=== PATIENT | male | born 1965 | race Two or more races ===

== ENCOUNTER 2017-09-07 06:15 | Inpatient (IN) | payer OTHER ==
[~2017-09-07] VITALS: Ht 188 cm; Wt 103.0 kg
[2017-09-07] MEDS ORDERED: RANI300C PO (06:28)
[2017-09-07] MEDS ORDERED: AMLO10TA2 PO (06:28)
[2017-09-07] MEDS ORDERED: HYDR25TA6 PO (06:28)
[2017-09-07] MEDS ORDERED: SODIUM CHLORIDE 0.9% 1,000 ML IV ONE (06:34)
[2017-09-07] MEDS ORDERED: HYDROmorphone 1 MG/ML, 1ML ONE (06:43)
[2017-09-07] MEDS ORDERED: ONDANSETRON 2MG/ML, 2ML ONE (06:43)
[2017-09-07 06:53] LABS: HEMATOCRIT 46.5 % (39.2-51.8)
[2017-09-07] MEDS ORDERED: MORPHINE SULFATE 4 MG/ML, 1ML IVPush PRN (07:00)
[2017-09-07] MEDS ORDERED: SODIUM CHLORIDE FLUSH 10ML SYR IVF ONE (07:00)
[2017-09-07] MEDS ORDERED: HYDROmorphone 1 MG/ML, 1ML IVPush PRN (07:00)
[2017-09-07] MEDS ORDERED: ONDANSETRON 2MG/ML, 2ML IVPush ONE (07:00)
[2017-09-07 07:05] LABS: ASPARTATE AMINO TRANSFERASE 42 U/L (15-37); BLOOD UREA NITROGEN 30 mg/dL (7-18)
[2017-09-07] MEDS ORDERED: OMNIPAQUE 350 MG/ML, 100ML BOTTLE ONE (07:50)
[2017-09-07] MEDS ORDERED: NITROGLYCERIN SINGLE TAB 0.4 MG SL PRN (08:30)
[2017-09-07] MEDS ORDERED: ASPIRIN 81 MG TABLET CHEW ONE (08:38)
[2017-09-07] MEDS: SODIUM CHLORIDE 0.9% 1,000 ML IV SCH (08:51)
[2017-09-07] MEDS ORDERED: ASPIRIN 81 MG TABLET CHEW PO ONE (09:00)
[2017-09-07] MEDS ORDERED: morphine SULFATE 10 MG/ML, 1ML IVPush PRN (09:00)
[2017-09-07] MEDS ORDERED: SODIUM CHLORIDE FLUSH 10ML SYR IVF PRN (09:00)
[2017-09-07] MEDS ORDERED: POTASSIUM CHLORIDE 20 MEQ TAB.ER.PRT PO ONE (09:00)
[2017-09-07] MEDS ORDERED: ACETAMINOPHEN 325 MG TABLET PO PRN (09:00)
[2017-09-07] MEDS ORDERED: hydrALAzine 20 MG/ML, 1ML IVPush PRN (09:00)
[2017-09-07 09:32] LABS: IS PT STATUS REG ER OR PRE ER? YES
[2017-09-07] MEDS: AMLODIPINE 5 MG TABLET PO SCH (09:35)
[2017-09-07] MEDS: HYDROCHLOROTHIAZIDE 25 MG TABLET PO SCH (09:36)
[2017-09-07 10:14] VITALS: BP 156/94
[2017-09-07 14:58] VITALS: BP 130/75
[2017-09-07 15:10] LABS: IS PT STATUS REG ER OR PRE ER? NO
[2017-09-07 19:40] VITALS: BP 134/78
[2017-09-07] MEDS ORDERED: RANITIDINE HCL 300 MG HOMEMEDPO SCH (21:00)
[2017-09-08] MEDS: SODIUM CHLORIDE 0.9% 1,000 ML IV SCH (00:05)
[2017-09-08 01:42] VITALS: BP 133/87
[2017-09-08 05:33] LABS: BLOOD UREA NITROGEN 17 mg/dL (7-18)
[2017-09-08 07:00] VITALS: BP 149/84
[2017-09-08] MEDS ORDERED: POTASSIUM CHLORIDE 20 MEQ TAB.ER.PRT ONE (08:12)
[2017-09-08] MEDS ORDERED: POTASSIUM CHLORIDE 20 MEQ TAB.ER.PRT PO ONE (08:30)
[2017-09-08] MEDS: AMLODIPINE 5 MG TABLET PO SCH (08:46)
[2017-09-08] MEDS: HYDROCHLOROTHIAZIDE 25 MG TABLET PO SCH (08:46)
== END 2017-09-08 12:37 | disposition home or self-care (01) | DRG 392 ==
LOC: ED 08:26 → EDIP 08:46 → SUATTDRO 08:47 → 5SO 10:06 → DCLOUNGE 09-08 12:05
PROVIDERS: ADMIT Hospitalist; ATTEND Hospitalist
DX: K21.9 Gastro-esophageal reflux disease without esophagitis (principal); E87.6 Hypokalemia; R07.89 Other chest pain; I10 Essential (primary) hypertension; F17.210 Nicotine dependence, cigarettes, uncomplicated; R79.89 Other specified abnormal findings of blood chemistry; Z79.82 Long term (current) use of aspirin
CPT/HCPCS: 36415; 71010; 71275; 74175; 78452; 80048; 80053; 80061; 82040; 83690; 83735; 83880; 84484; 85025; 85610; 85730; 93005; 96374; 96375; J1170; J2405; Q9967; A9502; C9898; J7030

== ENCOUNTER → 2017-09-12 | Outpatient (CLI) | payer OTHER ==
[~2017-09-12] MED LIST: AMLO10TA2 PO; HYDR25TA6 PO; RANI300C PO; REGADENOSON 0.4 MG/5 ML SYRINGE ONE
== END | disposition home or self-care (01) ==
LOC: CFH 12:07
PROVIDERS: ATTEND Hospitalist
DX: I42.0 Dilated cardiomyopathy (principal); I49.3 Ventricular premature depolarization
CPT/HCPCS: 78452; 93017; A9502; J2785